=== PATIENT | female | born 2000 | race African-American/Black ===

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

== ENCOUNTER 2019-07-05 09:10 | Emergency (ER) | payer OTHER ==
[2019-07-05 09:37] VITALS: BP 106/71
--- NOTE | 2019-07-05 10:03 | UC ---
Abdominal Pain Female HPI - HPI Summary HPI Summary: lower abdominal pain x 1 day pain is sharp , 6 out 10 , worse with movement better with rest, + constipation , no n/v/d , no urinary sx no fever, no chills - History of Current Complaint Chief Complaint: UCAbdominalPain Stated Complaint: LOWER ABD/BACK PAIN Time Seen by Provider: 07/05/19 09:38 Hx Obtained From: Patient Hx Last Menstrual Period: 05/01/17 ?: No Onset/Duration: Gradual Onset, Lasting Days - 1, Still Present Timing: Constant Severity Initially: Moderate Severity Currently: Moderate Pain Intensity: 6 Location: Suprapubic Radiates: No Character: Sharp Aggravating Factor(s): Movement Alleviating Factor(s): Other: - rest Associated Signs and Symptoms: Positive: Constipation. Negative: Fever, Back Pain, Blood in Stool, Decreased Appetite, Vaginal Bleeding, Vaginal Discharge, Nausea, Vomiting Allergies/Adverse Reactions: Allergies Allergy/AdvReac Type Severity Reaction Status Date / Time No Known Allergies Allergy Verified 07/05/19 09:34 Home Medications: Home Medications Amitriptyline TAB* [Elavil TAB*] 10 mg PO BEDTIME 07/05/19 [History Confirmed ] Control Pill 1 dose PO DAILY 07/05/19 [History Confirmed 07/05/19] PMH/Surg Hx/FS Hx/Imm Hx - Surgical History Surgical History: None - Family History Known Family History: Positive: Cardiac Disease - Social History Alcohol Use: Occasionally Substance Use Type: None Smoking Status (MU): Never Smoked Tobacco Have You Smoked in the Last Year: No - Immunization History Most Recent Influenza Vaccination: none Vaccination Up to Date: Yes Review of Systems All Other Systems Reviewed And Are Negative: Yes Is Patient Immunocompromised?: No Physical Exam Triage Information Reviewed: Yes Appearance: Well-Appearing, No Pain Distress, Well-Nourished Vital Signs: Initial Vital Signs Temp 97.3 F 07/05/19 09:32 Pulse 57 07/05/19 09:32 Resp 16 07/05/19 09:32 BP 106/71 07/05/19 09:32 Pulse Ox 99 07/05/19 09:32 Vital Signs Reviewed: Yes Eye Exam: Normal Eyes: Positive: Conjunctiva Clear ENT: Positive: Normal ENT inspection, Hearing grossly normal, Pharynx normal Neck exam: Normal Neck: Positive: Supple, Nontender, No Lymphadenopathy Respiratory: Positive: Chest non-tender, Lungs clear, Normal breath sounds, No respiratory distress Cardiovascular: Positive: RRR, No Murmur, Pulses Normal Abdomen Description: Positive: Soft, Other: - tenderness lowe abd/ suprapubic. Negative: CVA Tenderness (R), CVA Tenderness (L), Distended, Guarding Bowel Sounds: Positive: Present Abd Pain Female Course/Dx - Differential Dx/Diagnosis Provider Diagnosis: Suprapubic abdominal pain, Constipation Discharge ED - Sign-Out/Discharge Documenting (check all that apply): Patient Departure All imaging exams completed and their final reports reviewed: No Studies - Discharge Plan Condition: Stable Disposition: HOME Patient Education Materials: Acute Abdominal Pain (DC) Forms: *School Release Referrals: No Primary Care Phys,NOPCP [Primary Care Provider] - 7 Days Additional Instructions: ? constipation , increase fluid, take Tylenol for pain , daily walk otc Miralax follow up in one week if not better, sooner if getting worse - Billing Disposition and Condition Condition: STABLE Disposition: Home
== END 2019-07-05 10:04 | disposition home or self-care (01) ==
LOC: UCCORT 09:10
DX: R10.30 Lower abdominal pain, unspecified (principal); K59.00 Constipation, unspecified
CPT/HCPCS: 81003; 84702; 99211; G0463